=== PATIENT | male | born 1985 | race Caucasian/White ===

== ENCOUNTER → 2021-08-21 12:20 | Outpatient (CLI) | payer OTHER, SELFPAY ==
--- NOTE | ~2021-08-21 | MR_ITS ---
EXAMINATION: MR brain/brain stem wo/w con DATE: 08/21/2021 13:25 INDICATION: Hyperprolactinemia. TECHNIQUE: Magnetic resonance imaging (MRI) of the brain and brainstem was performed without and with 17 mL MultiHance intravenous contrast. Whole-brain sequences included sagittal T1-weighted FSE, axia l diffusion-weighted FS EPI, axial T2*-weighted GRE, axial T2-weighted FLAIR Propeller, and axial T2- weighted Propeller. Small [id number] sequences included sagittal and coronal T1-weighted FSE cente red at the pituitary. Postcontrast sequences included small [id number] coronal T1-weighted FSE in a time course and sagittal T1-weighted FSE and whole-brain axial T1-weighted FSE. Apparent diffusion coefficient (ADC) maps were created. COMPARISON: None. FINDINGS: The pituitary is normal in size with height of 6 mm and concave superior margin. 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 T here is no intracranial hemorrhage or acute infarction. The ventricles are normal in size. The mastoi d air cells are normal. There is mild mucosal thickening in the paranasal sinuses. The orbits are nor mal. IMPRESSION: 1. 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 Reviewed, dictated and finalized at location E. E TRIMMER IMPRESSION: 1. 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
[2021-08-21 12:49] LABS: Estimated Glomerular Filt Rate > 60
== END ==
PROVIDERS: Visit Provider Internal Medicine Endocrinology, Diabetes & Metabolism
DX: E22.1 Hyperprolactinemia (principal)
CPT/HCPCS: 70553; A9577

== ENCOUNTER 2022-12-20 12:20 | Emergency (ER) | payer BC, SELFPAY ==
[2022-12-20 12:29] VITALS: BP 116/73; PULSE 75; RESP 16; TEMP 36.3; O2SAT 100
--- NOTE | 2022-12-20 12:36 | ED.WOUNDLAC ---
HPI - Wound/Laceration General Chief Complaint: Wound/Laceration Stated Complaint: rt index finger injury Time Seen by Provider: 12/20/22 12:38 Source: patient and RN notes reviewed Mode of arrival: ambulatory Limitations: no limitations History of Present Illness HPI narrative: 37-year-old male presents with concern for laceration to the 2nd digit of his right hand. Reports he was cleaning his bathroom when his finger skin and his 's razor. He denies any other injury. He denies decrease in sensation, strength, range of motion to the digit. He is up-to-date on his tetanus vaccination Related Data Home Medications Medication Instructions Recorded Confirmed No Home Medications 12/20/22 12/20/22 Allergies Allergy/AdvReac Type Severity Reaction Status Date / Time No Known Allergies Allergy Verified 12/20/22 12:49 Review of Systems Review of Systems: CONSTITUTIONAL: Denies malaise, chills, sweats, or fever. EYES: Denies redness, or discharge. ENT: Denies rhinorrhea, congestion, swollen lips, swollen tongue CARDIOVASCULAR: Denies chest pain, palpitations, or edema. RESPIRATORY: Denies cough or dyspnea. GASTROINTESTINAL: Denies abdominal pain, nausea, vomiting SKIN: Reports laceration to the 2nd digit of the right hand MUSCULOSKELETAL: Denies joint pain or myalgia. NEUROLOGIC: Denies headache. All systems reviewed & are unremarkable except as noted in HPI and below PMFSH Comments At time of signature, agree with nursing past medical, surgical, social and family history. There is no relevant family history pertinent to the presenting complaint Exam Narrative: GENERAL: Well-appearing, well-nourished, and in no acute distress. HEAD: Normocephalic, atraumatic. EYES: PERRLA, conjunctivae clear, and EOMI. ENT: Mucous membranes moist. Oropharynx without edema, erythema or lesions. NECK: Supple. No lymphadenopathy CHEST: Clear to auscultation. No respiratory distress. HEART: Regular rate and rhythm. SKIN: Warm, dry. 0.75 cm skin avulsion noted to the distal 2nd digit of the right hand without other injury noted NEURO: Alert and oriented x3. PSYCH: Normal mood and affect Course Course Emergency Course: Patient is aware of diagnosis, understands and agrees to treatment plan. Anticipatory guidance given. Patient agrees to follow-up as directed and is aware of reasons to seek care at the emergency department. Portions of this record may have been created with voice recognition software Level of Care: Express Care Visit Vital Signs Vital signs: Vital Signs Temperature 97.3 F L 12/20/22 12:29 Pulse Rate 75 12/20/22 12:29 Respiratory Rate 16 12/20/22 12:29 Blood Pressure 116/73 12/20/22 12:29 Pulse Oximetry 100 12/20/22 12:29 Temperature 97.3 F L 12/20/22 12:29 Pulse Rate 75 12/20/22 12:29 Respiratory Rate 16 12/20/22 12:29 Blood Pressure 116/73 12/20/22 12:29 Pulse Oximetry 100 12/20/22 12:29 Reviewed. MDM - Wound/Laceration MDM Narrative Medical decision making narrative: Wound evaluated for foreign body and irrigation provided with no evidence of FB. Discussed signs/symptoms that should prompt the patient to immediately go to the ED for reevaluation. The laceration was cleansed, There was no evidence of tendon or nerve lacerations. The wound was dressed with Surgicel. A sterile dressing was then applied and anticipatory guidance was provided. Tetanus prophylaxis was not given Critical Care Time Critical Care Time Critical Care Time: No Discharge Plan Discharge Clinical Impression: Avulsion of skin Patient Disposition: Home, Self-Care Condition: Stable Instructions: Skin Avulsion (ED) Additional Instructions: Keep your dressing in place for 24 hours. If you notice any bleeding through the dressing, apply pressure and seek medical attention. In 24 hours remove the outer layer of the dressing carefully, soak the inner layer of the dres
== END 2022-12-20 12:54 | disposition home or self-care (01) ==
PROVIDERS: Emergency Provider Nurse Practitioner
DX: S61.200A Unspecified open wound of right index finger without damage to nail, initial encounter (principal); W45.8XXA Other foreign body or object entering through skin, initial encounter; Y93.E9 Activity, other interior property and clothing maintenance
CPT/HCPCS: 99212; G0463